=== PATIENT | male | born 1960 ===

== ENCOUNTER → 2025-03-17 12:34 | Outpatient (BNVA) | payer MEDICARE, MEDICAID, SELFPAY | PROVIDERS: PCP Specialist/Technologist Athletic Trainer; Referring Provider Specialist/Technologist Athletic Trainer; Visit Provider Nurse Practitioner Gerontology | DX: R97.20 Elevated prostate specific antigen [PSA] (principal); R39.9 Unspecified symptoms and signs involving the genitourinary system | CPT/HCPCS: 36415; 51798; 81003; 99205; 84153 ==

== ENCOUNTER 2025-03-17 14:08 | Outpatient (CLI) | payer MEDICARE, SELFPAY ==
[2025-03-18 18:05] LABS: PSA, Diagnostic 7.4 ng/mL (<=4.5)
== END 2025-03-17 14:09 | disposition home or self-care (01) ==
LOC: LBO 14:08
PROVIDERS: PCP Specialist/Technologist Athletic Trainer; Visit Provider Nurse Practitioner Gerontology
DX: R97.20 Elevated prostate specific antigen [PSA] (principal)
CPT/HCPCS: 36415; 84153

== ENCOUNTER 2025-06-29 03:23 | Outpatient (CLI) | payer MEDICARE, SELFPAY ==
[2025-06-29 22:48] LABS: PSA, Diagnostic 6.1 ng/mL (<=4.5)
== END 2025-06-29 03:24 | disposition home or self-care (01) ==
LOC: LBO 03:24
PROVIDERS: PCP Specialist/Technologist Athletic Trainer; Visit Provider Nurse Practitioner Gerontology
DX: R97.20 Elevated prostate specific antigen [PSA] (principal)
CPT/HCPCS: 36415; 84153

== ENCOUNTER → 2025-07-06 14:55 | Outpatient (BNVA) | payer MEDICARE, SELFPAY | PROVIDERS: PCP Specialist/Technologist Athletic Trainer; Referring Provider Specialist/Technologist Athletic Trainer; Visit Provider Nurse Practitioner Gerontology | DX: R97.20 Elevated prostate specific antigen [PSA] (principal) | CPT/HCPCS: 99213 ==